=== PATIENT | male | born 1940 | race Caucasian/White ===

== ENCOUNTER 2016-08-21 20:13 | Emergency (ER) | payer MEDICARE ==
[~2016-08-21] VITALS: Ht 177.8 cm; Wt 86.2 kg
[2016-08-21 23:12] VITALS: BP 130/67
[2016-08-21] MEDS ORDERED: CONTRAST GIVEN MC PRN (23:15)
[2016-08-21 23:18] LABS: BILIRUBIN,URINE NEGATIVE (NEG); GLUCOSE,URINE NEGATIVE (NEG); NITRITE,URINE NEGATIVE (NEG); PH,URINE 6.5; PROTEIN,URINE NEGATIVE (NEG-TRACE); UROBILINOGEN,URINE 0.2 mg/dL (0.2 mg/dL)
[2016-08-21 23:27] LABS: BASO # 0.1 x10^3/uL (0.0-0.2); BASO % 1 % (0-3); EOS % 1 % (0-3); HEMATOCRIT 40.2 % (39.0-53.0); HEMOGLOBIN 13.5 g/dL (13.0-17.5); LYMPH # 1.9 x10^3/uL (1.0-4.8); LYMPH % 16 % (24-48); MEAN CORPUSCULAR HEMOGLOBIN 31 pg (25-35); MEAN CORPUSCULAR HGB CONC 34 g/dL (31-37); MEAN CORPUSCULAR VOLUME 91 fL (79-100); MONO % 8 % (0-9); NEUT % 75 % (31-73); PLATELET COUNT 201 x10^3/uL (140-400); RED BLOOD COUNT 4.43 x10^6/uL (4.30-5.70); RED CELL DISTRIBUTION WIDTH 13.2 % (11.5-14.5); WHITE BLOOD COUNT 11.4 x10^3/uL (4.0-11.0)
[2016-08-21 23:30] LABS: POTASSIUM ISTAT 4.2 mmol/L (3.5-5.0)
[2016-08-21] MEDS ORDERED: IV NORMAL SALINE 1000ML BAG 1,000 ML IV SCH (23:30)
[2016-08-21] MEDS ORDERED: IOHEXOL 300 MG/ML 75 ML VIAL IV ONE (23:30)
[2016-08-21 23:38] LABS: CREATININE 1.3 mg/dL (0.7-1.3); GFR 53.4; POTASSIUM 4.3 mmol/L (3.5-5.1)
[2016-08-21 23:40] LABS: BACTERIA,URINE FEW /HPF (0-FEW)
[2016-08-21 23:44] LABS: ALBUMIN 3.4 g/dL (3.4-5.0); TOTAL BILIRUBIN 0.4 mg/dL (0.2-1.0); TOTAL PROTEIN 6.9 g/dL (6.4-8.2)
--- NOTE | 2016-08-22 00:26 | RAD ---
Examination: CT of the abdomen pelvis without contrast HISTORY History of left lower quadrant abdominal pain for 2 days. COMPARISON None available. TECHNIQUE Axial CT of the abdomen pelvis were performed without contrast. Coronal sagittal reformats were performed. Exposure: One or more of the following dose reduction technique were utilized for this examination: 1. Automated exposure control. 2.Adjustment of MA and /or KV according to patient size. 3. Use of iterative reconstruction technique. Findings: Minimal bibasilar lung atelectasis identified in the left lung base. No evidence of free air identified in the abdomen. The evaluation the bowel is limited lack of oral contrast . The evaluation of the solid organs is limited lack of IV contrast The visualized non contrasted liver, spleen, adrenals grossly appears unremarkable. Small hiatal hernia. Coronary artery calcifications identified. The gallbladder is mildly distended The visualized pancreas grossly appears unremarkable. The small bowel is nondilated. The appendix grossly appears unremarkable. Multiple colonic diverticula identified. There is mild thickening of the wall of the proximal sigmoid colon with minimal surrounding fat stranding likely mild colitis. Few sigmoid colon diverticulosis identified. The urinary bladder is mildly distended. Mildly enlarged prostate gland. There is minimal fat stranding identified surrounding the prostate gland. Moderate aortic atherosclerosis. There is stretched identified in the left kidney measuring 3.8 centimeters is difficult to characterize on examination could be a cyst or cystic lesion. Moderate degenerative changes identified in the lumbar spine. IMPRESSION - Mild thickened appearance of the wall of the sigmoid colon likely mild colitis with multiple sigmoid colon diverticulosis. - Mildly enlarged prostate gland with minimal surrounding fat stranding could be artifactual or prostatitis. - Left renal cyst or cystic lesion measuring 3.8 centimeters. - Small hiatal hernia. - Coronary artery calcifications. Electronically signed by: Gagandeep Jhaveri (Aug 22, 2016 00:25:29)
[2016-08-22] MEDS ORDERED: LEVO500T38 PO (00:59)
[2016-08-22] MEDS ORDERED: TAMS0.4C97 PO (00:59)
[2016-08-22] MEDS ORDERED: TAMSULOSIN 0.4 MG CAP.ER.24H. PO ONE (01:00)
--- NOTE | 2016-08-22 01:00 | PHYS DOC ---
Past Medical History Past Medical History: GERD, High Cholesterol, Hypertension Past Surgical History: Other Additional Past Surgical Histo: L HAND, L ROTATOR CUFF, BENIGN TUMOR REMOVAL-R BICEP, VASECTOMY, DENTAL Alcohol Use: None Drug Use: None Adult General Chief Complaint Chief Complaint: ABDOMINAL PAIN HPI HPI Patient is a 76 year old gentleman who presents here today complaining of dysuria, frequency, polyuria Franks for 2-3 days now. Patient reports she has some suprapubic abdominal discomfort and some tenesmus. Patient reports that he 's had multiple episodes where he's had the sensation of having to move his bowels but has been unable to. Patient has any fevers shaking chills nausea vomiting or diarrhea. Patient reports he has a history of colitis in the past but this does not feel like it. Patient reports he has a history of prostatitis in the past and used to be on Flomax for that has been discontinued. Patient has a history of hypertension diabetes liver longer kidney problem. Patient does not smoke [id number] or drugs. Patient is allergic to any medications. Patient reports tolerating by mouth's well without any discomfort. Patient's physical exam was relatively unremarkable. Patient does have some tenderness to palpation to his suprapubic region. Patient has no rebound or guarding. 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 Patient is not exhibiting any signs or symptoms of be consistent with an acute surgical abdomen. Patient is in good spirits watching TV and talking to son. Patient is laughing and jovial. Patient has CT scan of his abdomen and pelvis which did not show any acute pathology other than what could be consistent with prostatitis. There was once again some nonspecific colitis. Patient's UA revealed 5-[address] scan report of prostatitis and the white cells in his urine and the patient's symptomatology I think that this is consistent with acute prostatitis. I will go ahead and give the patient does of IV Levaquin here in the ED and we will send him home with by mouth Levaquin for 14 days and have him follow up with primary care physician for further evaluation. We will also start the patient on Flomax 0.4 mg daily. She is clinically and hemodynamically stable for discharge to home and to resume further outpatient evaluation. There is currently no acute emergent issue that we'll require further inpatient treatment or monitoring. Review of Systems Review of Systems Constitutional: Denies fever or chills [] Eyes: Denies change in visual acuity, redness, or eye pain [] All other review of systems are negative except as documented in the history of present illness portion Current Medications Current Medications Current Medications Medications (Trade) Dose Ordered Sig/Jojo Start Time Stop Time Status Last Admin Dose Admin Info (Do NOT chart on this entry -- for MONITORING) 1 each PRN DAILY PRN 08/21/16 23:15 08/23/16 23:14 Iohexol (Omnipaque 300 Mg/ml) 75 ml 1X ONCE 08/21/16 23:30 08/21/16 23:31 DC Levofloxacin/ Dextrose (LEVAQUIN 750mg PREMIX) 150 ml @ 100 mls/hr 1X ONCE 08/22/16 01:00 08/22/16 02:29 Sodium Chloride (Iv Sodium Chloride 0.9% 1000ml Bag) 1,000 ml @ 1,000 mls/hr Q1H 08/21/16 23:30 08/22/16 00:29 DC 08/21/16 23:20 1,000 MLS/HR Tamsulosin HCl 0.4 mg 0.4 mg 1X ONCE 08/22/16 01:00 08/22/16 01:01 Allergies Allergies Allergies Coded Allergies Type Severity Reaction Last Updated Verified prochlorperazine Allergy Severe CONVULSIONS 08/21/16 Yes cephalexin Allergy Mild NAUSEA 08/21/16 Yes chlorpromazine Allergy Mild HICCUPS 08/21/16 Yes lisinopril Allergy Mild COUGH 08/21/16 Yes naproxen Allergy Mild NAUSEA 08/21/16 Yes oxycodone Allergy Mild NAUSEA 08/21/16 Yes Physical Exam Physical Exam Constitutional: Well developed, well nourished, no acute distress, non-toxic appearance. [] HENT: Normocephalic, atraumatic, bilateral external ears normal, oropharynx moist, no oral exudates, nose normal. [] Eyes: PERRLA, EOMI, conjunctiva normal, no discharge. [] Neck: Normal range of motion, no tenderness, supple, no stridor. [] Cardiovascular:Heart rate regular rhythm, no murmur [] Lungs & Thorax: Bilateral breath sounds clear to auscultation [] Abdomen: See above Skin: Warm, dry, no erythema, no rash. [] Back: No tenderness, no CVA tenderness. [] Extremities: No tenderness, no cyanosis, no clubbing, ROM intact, no edema. [] Neurologic: Alert and oriented X 3, normal motor function, normal sensory function, no focal deficits noted. [] Psychologic: Affect normal, judgement normal, mood normal. [] Current Patient Data Vital Signs Vital Signs Date Time Temp Pulse Resp B/P Pulse Ox O2 Delivery O2 Flow Rate FiO2 08/21/16 23:12 64 18 130/67 97 Room Air 08/21/16 22:51 98.6 98.6 Lab Values Laboratory Tests Test 08/21/16 22:00 08/21/16 23:20 08/21/16 23:27 Urine Collection Type Unknown Urine Color Yellow Urine Clarity Clear Urine pH 6.5 Urine Specific Shirley 1.010 Urine Protein Negativemg/dL (NEG-TRACE) Urine Glucose (UA) Negativemg/dL (NEG) Urine Ketones (Stick) Negativemg/dL (NEG) Urine Blood Negative (NEG) Urine Nitrite Negative (NEG) Urine Bilirubin Negative (NEG) Urine Urobilinogen Dipstick 0.2mg/dL (0.2 mg/dL) Urine Leukocyte Esterase Trace (NEG) Urine RBC 1-2/HPF (0-2) Urine WBC 5-10/HPF (0-4) Urine Squamous Epithelial Cells None/LPF Urine Bacteria Few/HPF (0-FEW) White Blood Count 11.4x10^3/uL (4.0-11.0) H Red Blood Count 4.43x10^6/uL (4.30-5.70) Hemoglobin 13.5g/dL (13.0-17.5) Hematocrit 40.2% (39.0-53.0) Mean Corpuscular Volume 91fL (79-100) Mean Corpuscular Hemoglobin 31pg (25-35) Mean Corpuscular Hemoglobin Concent 34g/dL (31-37) Red Cell Distribution Width 13.2% (11.5-14.5) Platelet Count 201x10^3/uL (140-400) Neutrophils (%) (Auto) 75% (31-73) H Lymphocytes (%) (Auto) 16% (24-48) L Monocytes (%) (Auto) 8% (0-9) Eosinophils (%) (Auto) 1% (0-3) Basophils (%) (Auto) 1% (0-3) Neutrophils # (Auto) 8.5x10^3uL (1.8-7.7) H Lymphocytes # (Auto) 1.9x10^3/uL (1.0-4.8) Monocytes # (Auto) 0.9x10^3/uL (0.0-1.1) Eosinophils # (Auto) 0.1x10^3/uL (0.0-0.7) Basophils # (Auto) 0.1x10^3/uL (0.0-0.2) Sodium Level 141mmol/L (136-145) Potassium Level 4.3mmol/L (3.5-5.1) Chloride Level 105mmol/L (98-107) Carbon Dioxide Level 27mmol/L (21-32) Anion Gap 9 (6-14) 16mmol/L (6-14) H Blood Urea Nitrogen 20mg/dL (8-26) Creatinine 1.3mg/dL (0.7-1.3) Estimated GFR (Cockcroft-Gault) 53.4 BUN/Creatinine Ratio 15 (6-20) Glucose Level 136mg/dL (70-99) H 133mg/dL (70-99) H Calcium Level 9.0mg/dL (8.5-10.1) Total Bilirubin 0.4mg/dL (0.2-1.0) Aspartate Amino Transferase (AST) 17U/L (15-37) Alanine Aminotransferase (ALT) 17U/L (16-63) Alkaline Phosphatase 95U/L (46-116) Total Protein 6.9g/dL (6.4-8.2) Albumin 3.4g/dL (3.4-5.0) Albumin/Globulin Ratio 1.0 (1.0-1.7) Lipase 93U/L (73-393) POC Hemoglobin 12.9g/dL (14-18) L POC Hematocrit 38% (37-52) POC Sodium 138mmol/L (135-145) POC Potassium 4.2mmol/L (3.5-5.0) POC Chloride 101mmol/L (98-110) POC Total CO2 25mmol/L (23-32) POC Blood Urea Nitrogen 21mg/dL (8-26) POC Creatinine 1.4mg/dL (0.5-1.4) POC Ionized Calcium ([place]) 1.15mmol/L (1.13-1.32) Laboratory Tests 08/21/16 23:20 Laboratory Tests 08/21/16 23:20 08/21/16 23:27 EKG EKG [] Radiology/Procedures Radiology/Procedures [] CT scan report please see above Course & Med Decision Making Course & Med Decision Making Pertinent Labs and Imaging studies reviewed. (See chart for details) [] Dragon Disclaimer Dragon Disclaimer This electronic medical record was generated, in whole or in part, using a voice recognition dictation system. Please see above for assessment and plan. #1 prostatitis patient will be discharged home on Levaquin and Flomax. #2 frequency we will add Flomax Patient was given the option for admission to the hospital if he was having a significant amount of pain. Patient reports that he did not want to be admitted to the hospital and that he did not need any pain medicines when he went home. Patient is requesting that he write him a prescription for his Flomax as he feels that that is what helped him in the past. Departure Departure Impression: Primary Impression: Prostatitis Additional Impression: UTI (urinary tract infection) Disposition: 01 HOME, SELF-CARE Condition: IMPROVED Referrals: THELMA LONDON MD (PCP) Patient Instructions: Prostatitis Scripts Tamsulosin Hcl (Flomax)0.4 Mg Cap.er.24h1 Cap PO DAILY #30 CAP Ref 11 Prov:MARK MERCADO MD 08/22/16 Levofloxacin (Levaquin)500 Mg Tablet1 Tab PO DAILY #14 TAB Prov:MARK MERCADO MD 08/22/16 Problem Qualifiers MARK MERCADO MD Aug 22, 2016 01:00
== END 2016-08-22 03:04 | disposition home or self-care (01) ==
LOC: ER 20:13
DX: N39.0 Urinary tract infection, site not specified (principal); K21.9 Gastro-esophageal reflux disease without esophagitis; E78.00 Pure hypercholesterolemia, unspecified; E11.9 Type 2 diabetes mellitus without complications; I10 Essential (primary) hypertension; Z98.52 Vasectomy status; Z88.8 Allergy status to other drugs, medicaments and biological substances; Z88.5 Allergy status to narcotic agent
CPT/HCPCS: 36415; 74176; 80047; 80053; 81001; 83690; 85027; 87086; 96361; 96365; 96366; 99285; J1956; J7030